=== PATIENT | female | born 1985 | race Caucasian/White ===

== ENCOUNTER 2017-02-09 12:07 | Emergency (ER) | payer MEDICAID ==
[2017-02-09 12:19] VITALS: BP 135/94; PULSE 94; O2SAT 99
[2017-02-09] MEDS ORDERED: CLEOCIN 150 MG CAPSULE PO ONE (12:39)
[2017-02-09] MEDS ORDERED: XYLOCAINE VISCOUS 2% 20 ML CUP PO ONE (12:40)
[2017-02-09] MEDS ORDERED: XYLOCAINE HCl Viscous ONE (12:42)
[2017-02-09] MEDS ORDERED: CLEOCIN 150 MG CAPSULE ONE (12:42)
--- NOTE | 2017-02-09 12:45 | ERPHSYRPT ---
- History of Present Illness Time Seen by Provider: 02/09/17 12:41 Source: patient Exam Limitations: no limitations Patient Subjective Stated Complaint: tooth pain and swelling to right lower jaw ; no fevers Triage Nursing Assessment: swelling to lower right jaw, no drainage, no fever Physician History: mild to mod ache right lower tooth for 4 days, no fever, no injury, speech fluent Allergies/Adverse Reactions: ceftriaxone [From Rocephin] Allergy (Verified 02/09/17 12:20) Vomiting ciprofloxacin [From Cipro] Allergy (Verified 02/09/17 12:20) Vomiting citalopram [From Celexa] Allergy (Verified 02/09/17 12:20) Fainting divalproex sodium [From Depakote] Allergy (Verified 02/09/17 12:20) Fainting fluoxetine [From Prozac] Allergy (Verified 02/09/17 12:20) Fainting tramadol Allergy (Verified 02/09/17 12:20) Vomiting Home Medications: No Reportable Medications [No Reported Medications] 02/09/17 [History] Hx Tetanus, Diphtheria Vaccination/Date Given: No Hx Influenza Vaccination/Date Given: No Hx Pneumococcal Vaccination/Date Given: No Immunizations Up to Date: Yes - Review of Systems Constitutional: No Fever Ears, Nose, & Throat: Mouth Pain Respiratory: No Symptoms Skin: No Symptoms Neurological: No Symptoms - Past Medical History Pertinent Past Medical History: No - Past Surgical History Past Surgical History: Yes Gastrointestinal: Appendectomy, Cholecystectomy Female Surgical History: Hysterectomy, Section Other Surgical History: barthland gland removed - Social History Smoking Status: Current every day smoker Drug Use: none - Female History Hx Last Menstrual Period: hysterectomy Hx Now: No - Nursing Vital Signs Nursing Vital Signs: Initial Vital Signs Temperature 98.1 F 02/09/17 12:13 Pulse Rate 94 H 02/09/17 12:13 Respiratory Rate 18 02/09/17 12:13 Blood Pressure 135/94 02/09/17 12:13 O2 Sat by Pulse Oximetry 99 02/09/17 12:13 Pain Scale Pain Intensity 8 - Physical Exam General Appearance: no apparent distress Ears, Nose, Throat Exam: other (tender right lower molar, no trismus, no fluc mass) Neck Exam: normal inspection Respiratory Exam: normal breath sounds Neurologic Exam: alert, oriented x 3, cooperative Skin Exam: normal color, warm, dry SpO2 Interpretation: normal SpO2: 99 Oxygen Delivery: Room Air - Course Nursing assessment & vital signs reviewed: Yes Ordered Tests: Medication Summary Discontinued Medications Generic Name Dose Route Start Last Admin Trade Name Gail PRN Reason Stop Dose Admin Clindamycin HCl 150 mg 02/09/17 12:39 Cleocin 150 Mg Capsule PO 02/09/17 12:40 STAT ONE Lidocaine HCl 20 ml 02/09/17 12:40 Xylocaine Viscous 2% 20 Ml Cup PO 02/09/17 12:41 STAT ONE - Progress Progress: improved Progress Note: 02/09/17 12:43 see a dentist, cleocin, viscus lidocaine, return if worse Discussed with Dr.: Other (dentist) Counseled pt/family regarding: diagnosis, need for follow-up - Departure Time of Disposition: 12:44 Departure Disposition: Home Clinical Impression: Tooth ache Condition: Stable Critical Care Time: No Referrals: DEVEN MORENO MD [Primary Care Provider] - Instructions: Tooth Decay
== END 2017-02-09 13:04 | disposition home or self-care (01) ==
LOC: ED 12:07
DX: K08.89 Other specified disorders of teeth and supporting structures (principal)
CPT/HCPCS: 99283; A9270-GY

== ENCOUNTER 2017-05-29 23:50 | Observation (INO) | payer MEDICAID, OTHER ==
[2017-05-30] MEDS ORDERED: BABY ASPIRIN 81 MG CHEW PO ONE (00:27)
[2017-05-30] MEDS ORDERED: Nitrostat 0.4 MG (ED) SL ONE ×2 (00:27→01:01)
[2017-05-30] MEDS ORDERED: Sodium Chloride 0.9% 1000 ML 1,000 ML IV STA (00:27)
[2017-05-30] MEDS ORDERED: BABY ASPIRIN 81 MG CHEW ONE (01:01)
[2017-05-30] MEDS ORDERED: Sodium Chloride 0.9% 1000 ML 1,000 ML ONE (01:01)
[2017-05-30 01:37] LABS: BASOPHIL % 0.3 % (0.0-0.4); Basophil (Absolute #) 0.03 (0-0.4); Eosinophil % 0.5 % (0.00-5.0); Eosinophil (Absolute #) 0.06 (0-0.5); Granulocyte Absolute (ANC) 7.69 (1.4-6.9); Granulocytes % 67.2 % (36.0-66.0); Hematocrit 38.2 % (35-47); Hemoglobin 12.8 gm/dl (12.0-16.0); Lymphocytes % 25.3 % (24.0-44.0); Mean Cell Volume 92.3 fl (78-100); Mean Corpuscular Hemoglobin 30.9 pg (26-32); Mean Corpuscular Hgb Concent. 33.5 g/dl (32-36); Mean Platelet Volume 9.9 fl (6-9.5); Monocyte (Absolute #) 0.77 (0.0-1.3); Monocytes % 6.7 % (0.0-12.0); Platelet Count 349 K/mm3 (150-450); Red Blood Count 4.14 M/mm3 (4.1-5.4); Red Cell Distribution Width 13.4 % (11.5-14.0); White Blood Count 11.5 K/mm3 (4.0-10.5)
[2017-05-30 01:58] LABS: ALBUMIN 4.5 g/dL (3.5-5.0); ALKALINE PHOSPHATASE 80 U/L (38-126); AMYLASE 54 U/L (30-110); ANION GAP 18.5 MEQ/L (5-15); BLOOD UREA NITROGEN 18 mg/dL (7-17); CHLORIDE 106 mmol/L (98-107); Calcium 9.9 mg/dL (8.4-10.2); Carbon Dioxide 22 mmol/L (22-30); Creatinine 1 0.63 mg/dL (0.52-1.04); Glucose 101 mg/dL (74-106); LIPASE 81 U/L (23-300); Potassium 3.3 mmol/L (3.5-5.1); SGOT/AST 14 U/L (14-36); SGPT/ALT 16 U/L (0-35); SODIUM 143 mmol/L (137-145); Total Protein 7.6 g/dL (6.3-8.2)
--- NOTE | 2017-05-30 01:59 | ERPHSYRPT ---
- History of Present Illness Time Seen by Provider: 05/30/17 01:55 Source: patient, family Patient Subjective Stated Complaint: starting at 4am with a feeling of heaviness all over.. had CP at that time.. states feels like she forgets to breath. tingly feeling all over. Triage Nursing Assessment: alert and oriented in no distress. staes heaviness feeling all over with CP last night. states forgets to breathe.. tingly fgeeling everywhere. denies fever. states feel like her blood sugar was low earlier. ( not diabetic) had some OJ And layed down but did not feel better./. Physician History: no prior cardiac , no CP; no n/V , no fever, some shortness of breath Timing/Duration: today Activities at Onset: none Severity of Dyspnea-Max: moderate Severity of Dyspnea-Current: moderate Possible Cause: no prior episodes Associated Symptoms: tingling hands Allergies/Adverse Reactions: ceftriaxone [From Rocephin] Allergy (Verified 02/09/17 12:20) Vomiting ciprofloxacin [From Cipro] Allergy (Verified 02/09/17 12:20) Vomiting citalopram [From Celexa] Allergy (Verified 02/09/17 12:20) Fainting divalproex sodium [From Depakote] Allergy (Verified 02/09/17 12:20) Fainting fluoxetine [From Prozac] Allergy (Verified 02/09/17 12:20) Fainting tramadol Allergy (Verified 02/09/17 12:20) Vomiting Home Medications: No Reportable Medications [No Reported Medications] 02/09/17 [History] Hx Tetanus, Diphtheria Vaccination/Date Given: No Hx Influenza Vaccination/Date Given: No Hx Pneumococcal Vaccination/Date Given: No Immunizations Up to Date: Yes - Review of Systems Constitutional: No Fever, No Chills Eyes: No Symptoms Ears, Nose, & Throat: No Symptoms Respiratory: Dyspnea, No Cough Cardiac: No Chest Pain, No Edema, No Syncope Abdominal/Gastrointestinal: No Abdominal Pain, No Nausea, No Vomiting, No Diarrhea Genitourinary Symptoms: No Dysuria Musculoskeletal: No Back Pain, No Neck Pain Skin: No Rash Neurological: No Dizziness, No Focal Weakness, No Sensory Changes Psychological: No Symptoms Endocrine: No Symptoms All Other Systems: Reviewed and Negative - Past Medical History Pertinent Past Medical History: Yes Female Reproductive Disorders: Other - Past Surgical History Past Surgical History: Yes Gastrointestinal: Appendectomy, Cholecystectomy Female Surgical History: Hysterectomy, Section Other Surgical History: barthland gland removed - Social History Smoking Status: Current every day smoker Exposure to second hand smoke: No Drug Use: none Patient Lives Alone: No - Female History Hx Last Menstrual Period: hysterectomy Hx Now: No - Nursing Vital Signs Nursing Vital Signs: Initial Vital Signs Temperature 98.2 F 05/30/17 00:14 Pulse Rate 96 H 05/30/17 00:14 Respiratory Rate 18 05/30/17 00:14 Blood Pressure 128/85 05/30/17 00:14 O2 Sat by Pulse Oximetry 100 05/30/17 00:14 Pain Scale Pain Intensity 4 - Physical Exam General Appearance: no apparent distress, alert Eye Exam: PERRL/EOMI Neck Exam: normal inspection, supple Respiratory Exam: normal breath sounds, lungs clear, airway intact Cardiovascular/Chest Exam: normal heart sounds, regular rate/rhythm Abdominal/Gastrointestinal Exam: soft, No tenderness, No distention, No mass Extremity Exam: non-tender, normal range of motion, normal inspection, no calf tenderness, no pedal edema Peripheral Pulses Exam: carotid (R): 2+, carotid (L): 2+, femoral (R): 2+, femoral (L): 2+, dorsalis-pedis (R): 2+, dorsalis-pedis (L): 2+ Neurologic Exam: alert, oriented x 3, cooperative, assemblyman or woman II-XII nml as tested, sensation nml, No motor deficits Skin Exam: normal color, warm, No dry SpO2 Interpretation: normal SpO2: 100 Oxygen Delivery: Room Air - Course Nursing assessment & vital signs reviewed: Yes EKG Interpreted by Me: Sinus Rhythm, NORMAL AXIS, Non-specific ST Changes - Radiology Exams Chest X-ray Interpretation: Reviewed by me, No Pneumonia (scoliosis), No Infiltrates - CT Exams Chest CT Interpretation: Tele-radiologist Report, No PE Ordered Tests: Active Orders 24 hr Category Date Time Status Skidder Operator STAT Care 05/30/17 00:29 Active Clean Catch Urine Specimen STAT Care 05/30/17 00:27 Active EKG-ER Only STAT Care 05/30/17 00:27 Active Pulse Oximetry (ED) STAT Care 05/30/17 00:27 Active CHEST 2 VIEWS (PA AND LAT) Stat Exams 05/30/17 00:28 Taken CHEST WITH CONTRAST [CT] Stat Exams 05/30/17 02:04 Taken AMYLASE Stat Lab 05/30/17 01:20 Completed CBC W DIFF Stat Lab 05/30/17 01:20 Completed CMP Stat Lab 05/30/17 01:20 Completed D-DIMER QUANTITATION Stat Lab 05/30/17 01:20 Completed HCG QUALITATIVE,SERUM Stat Lab 05/30/17 01:20 Completed LIPASE Stat Lab 05/30/17 01:20 Completed Lactic Acid Stat Lab 05/30/17 01:11 Completed TROPONIN Q3H Lab 05/30/17 01:20 Completed TROPONIN Q3H Lab 05/30/17 04:00 Completed TROPONIN Q3H Lab 05/30/17 06:30 Ordered TROPONIN Q3H Lab 05/30/17 09:30 Ordered TROPONIN Q3H Lab 05/30/17 12:30 Ordered UA W/RFX UR CULTURE Stat Lab 05/30/17 00:28 Ordered Medication Summary Discontinued Medications Generic Name Dose Route Start Last Admin Trade Name Freq PRN Reason Stop Dose Admin Aspirin 324 mg 05/30/17 00:27 05/30/17 01:05 Baby Aspirin 81 Mg Chew PO 05/30/17 00:28 324 mg STAT ONE Administration Aspirin Confirm 05/30/17 01:01 Baby Aspirin 81 Mg Chew Administered 05/30/17 01:02 Dose 324 mg .ROUTE .STK-MED ONE Sodium Chloride 1,000 mls @ 999 mls/hr 05/30/17 00:27 05/30/17 01:05 Sodium Chloride 0.9% 1000 Ml IV 05/30/17 01:27 999 mls/hr .Q1H1M STA Administration Sodium Chloride Confirm 05/30/17 01:01 Sodium Chloride 0.9% 1000 Ml Administered 05/30/17 01:02 Dose 1,000 mls @ ud .ROUTE .STK-MED ONE Nitroglycerin 0.4 mg 05/30/17 00:27 05/30/17 01:05 Nitrostat 0.4 Mg (Ed) SL 05/30/17 00:28 0.4 mg STAT ONE Administration Nitroglycerin Confirm 05/30/17 01:01 Nitrostat 0.4 Mg (Ed) Administered 05/30/17 01:02 Dose 0.4 mg SL .STK-MED ONE Lab/Rad Data: Laboratory Result Diagrams 05/30/17 01:20 05/30/17 01:20 Laboratory Results 05/30/17 05/30/17 05/30/17 Range/Units 04:00 02:45 01:20 WBC (4.0-10.5) K/mm3 RBC (4.1-5.4) M/mm3 Hgb (12.0-16.0) gm/dl Hct (35-47) % MCV (78-100) fl MCH (26-32) pg MCHC (32-36) g/dl RDW (11.5-14.0) % Plt Count (150-450) K/mm3 MPV (6-9.5) fl Gran % (36.0-66.0) % Lymphocytes % (24.0-44.0) % Monocytes % (0.0-12.0) % Eosinophils % (0.00-5.0) % Basophils % (0.0-0.4) % Basophils # (0-0.4) D-Dimer (215-500) ng/mL Sodium (137-145) mmol/L Potassium (3.5-5.1) mmol/L Chloride (98-107) mmol/L Carbon Dioxide (22-30) mmol/L Anion Gap (5-15) MEQ/L BUN (7-17) mg/dL Creatinine (0.52-1.04) mg/dL Estimated GFR ML/MIN Glucose (74-106) mg/dL Lactic Acid (0.4-2.0) Calcium (8.4-10.2) mg/dL Total Bilirubin (0.2-1.3) mg/dL AST (14-36) U/L ALT (0-35) U/L Alkaline Phosphatase (38-126) U/L Troponin I < 0.012 (0.000-0.034) ng/mL Serum Total Protein (6.3-8.2) g/dL Albumin (3.5-5.0) g/dL Amylase (30-110) U/L Lipase (23-300) U/L Serum , Qual NEGATIVE (Negative) Influenza Type A Ag NEGATIVE (NEGATIVE) Influenza Type B Ag NEGATIVE (NEGATIVE) RSV (PCR) NEGATIVE (Negative) 05/30/17 05/30/17 05/30/17 Range/Units 01:20 01:20 01:20 WBC (4.0-10.5) K/mm3 RBC (4.1-5.4) M/mm3 Hgb (12.0-16.0) gm/dl Hct (35-47) % MCV (78-100) fl MCH (26-32) pg MCHC (32-36) g/dl RDW (11.5-14.0) % Plt Count (150-450) K/mm3 MPV (6-9.5) fl Gran % (36.0-66.0) % Lymphocytes % (24.0-44.0) % Monocytes % (0.0-12.0) % Eosinophils % (0.00-5.0) % Basophils % (0.0-0.4) % Basophils # (0-0.4) D-Dimer 245.15 (215-500) ng/mL Sodium 143 (137-145) mmol/L Potassium 3.3 L (3.5-5.1) mmol/L Chloride 106 (98-107) mmol/L Carbon Dioxide 22 (22-30) mmol/L Anion Gap 18.5 H (5-15) MEQ/L BUN 18 H (7-17) mg/dL Creatinine 0.63 (0.52-1.04) mg/dL Estimated GFR > 60 ML/MIN Glucose 101 (74-106) mg/dL Lactic Acid (0.4-2.0) Calcium 9.9 (8.4-10.2) mg/dL Total Bilirubin 0.40 (0.2-1.3) mg/dL AST 14 (14-36) U/L ALT 16 (0-35) U/L Alkaline Phosphatase 80 (38-126) U/L Troponin I < 0.012 (0.000-0.034) ng/mL Serum Total Protein 7.6 (6.3-8.2) g/dL Albumin 4.5 (3.5-5.0) g/dL Amylase 54 (30-110) U/L Lipase 81 (23-300) U/L Serum , Qual (Negative) Influenza Type A Ag (NEGATIVE) Influenza Type B Ag (NEGATIVE) RSV (PCR) (Negative) 05/30/17 05/30/17 Range/Units 01:20 01:11 WBC 11.5 H (4.0-10.5) K/mm3 RBC 4.14 (4.1-5.4) M/mm3 Hgb 12.8 (12.0-16.0) gm/dl Hct 38.2 (35-47) % MCV 92.3 (78-100) fl MCH 30.9 (26-32) pg MCHC 33.5 (32-36) g/dl RDW 13.4 (11.5-14.0) % Plt Count 349 (150-450) K/mm3 MPV 9.9 H (6-9.5) fl Gran % 67.2 H (36.0-66.0) % Lymphocytes % 25.3 (24.0-44.0) % Monocytes % 6.7 (0.0-12.0) % Eosinophils % 0.5 (0.00-5.0) % Basophils % 0.3 (0.0-0.4) % Basophils # 0.03 (0-0.4) D-Dimer (215-500) ng/mL Sodium (137-145) mmol/L Potassium (3.5-5.1) mmol/L Chloride (98-107) mmol/L Carbon Dioxide (22-30) mmol/L Anion Gap (5-15) MEQ/L BUN (7-17) mg/dL Creatinine (0.52-1.04) mg/dL Estimated GFR ML/MIN Glucose (74-106) mg/dL Lactic Acid 0.7 (0.4-2.0) Calcium (8.4-10.2) mg/dL Total Bilirubin (0.2-1.3) mg/dL AST (14-36) U/L ALT (0-35) U/L Alkaline Phosphatase (38-126) U/L Troponin I (0.000-0.034) ng/mL Serum Total Protein (6.3-8.2) g/dL Albumin (3.5-5.0) g/dL Amylase (30-110) U/L Lipase (23-300) U/L Serum , Qual (Negative) Influenza Type A Ag (NEGATIVE) Influenza Type B Ag (NEGATIVE) RSV (PCR) (Negative) - Progress Progress: improved, re-examined Air Movement: good Progress Note: 05/30/17 04:[address] dockery, but he was not the Dr for those having no Dr and was misunderstood by requesting staff; Dr Lewis was then paged but not yet responding so will have to repage , requiring more time to dispo; 05/30/17 05:21 Dr Lewis called back and all agree best to place pt in obs and follow enzymes ; Blood Culture(s) Obtained: No Antibiotics given: No Discussed with Dr.: Coleen (dr dockery turned out to not be correct Dr- will call brien), Leonela Henson Will see patient in: hospital (observation) Counseled pt/family regarding: lab results, diagnosis, need for follow-up, rad results - Departure Time of Disposition: 05:23 Departure Disposition: Observation Clinical Impression: chest pain/short of breath, Hypokalemia Condition: Good Critical Care Time: No Referrals: DOCTOR,NO FAMILY [Primary Care Provider] -
[2017-05-30 04:08] LABS: INFLUENZA A NEGATIVE (NEGATIVE); INFLUENZA B NEGATIVE (NEGATIVE); RESPIRATORY SYNCTIAL VIRUS NEGATIVE (Negative)
[2017-05-30] MEDS ORDERED: TYLENOL 325 MG PO PRN (06:05)
[2017-05-30] MEDS ORDERED: MORPHINE SULFATE 4 MG INJ IV PRN (06:05)
[2017-05-30] MEDS ORDERED: POTASSIUM CHLORIDE 20 mEq IN WATER 100ML 20 MEQ/100 ML BAG IV ONE (06:05)
[2017-05-30] MEDS ORDERED: Zofran 4 MG/2 ML VIAL IV PRN (06:05)
[2017-05-30] MEDS ORDERED: Sodium Chloride 0.9% 1000 ML 1,000 ML IV SCH (06:05)
[2017-05-30 06:40] VITALS: O2SAT 98
--- NOTE | 2017-05-30 10:02 | XRAY ---
Indication: Short of breath. Elevated d-dimer. Multiple contiguous axial images obtained through the chest using 80 cc Isovue 370 contrast and PE protocol. Comparison: None Adequate opacification of the pulmonary arteries to include the lobar and segmental branches. No filling defect or pulmonary embolus. Heart is not enlarged. Aorta is normal in course and caliber. No pathologic mediastinal/hilar lymphadenopathy. Examination of the lung parenchyma demonstrates mild bilateral dependent atelectasis. No suspicious pulmonary mass, infiltrate, or effusion. Bony thorax intact with mild dextroscoliosis centered at T8 level. Limited upper abdomen demonstrates mild fatty liver and previous cholecystectomy. Impression: 1. Negative pulmonary embolus. No acute cardiopulmonary abnormalities. 2. Fatty liver. Comment: Preliminary interpretation was made by [facility]. No discrepancy. CT DI 13.58
--- NOTE | 2017-05-30 10:04 | XRAY ---
Indication: Short of breath, bilateral arm tingling, and left arm heaviness. Comparison: None PA/lateral chest demonstrates normal heart and lungs. Bony thorax intact with double curvature scoliosis.
[2017-05-30 12:17] VITALS: BP 110/67; PULSE 74
--- NOTE | 2017-05-30 12:38 | PCM.SSS ---
History of Present Illness - Chief Complaint Chief Complaint: cp/sob and chest pain for 1 day History of Present Illness: is a 32 year old female.starting at 4am with a feeling of heaviness all over.. had CP at that time.. states feels like she forgets to breath. tingly feeling all over. - Review of Systems Constitutional: No Fever, No Chills Eyes: No Symptoms Ears, Nose, & Throat: No Symptoms Respiratory: No Cough, No Short Of Breath Cardiac: Chest Pain, No Edema, No Syncope Abdominal/Gastrointestinal: No Abdominal Pain, No Nausea, No Vomiting, No Diarrhea Genitourinary Symptoms: No Dysuria Musculoskeletal: No Back Pain, No Neck Pain Skin: No Rash Neurological: No Dizziness, No Focal Weakness, No Sensory Changes Psychological: No Symptoms Endocrine: No Symptoms Hematologic/Lymphatic: No Symptoms Immunological/Allergic: No Symptoms Medications & Allergies Home Medications: Home Medication List Cyclobenzaprine HCl [Flexeril] 2 tab PO TID PRN 05/30/17 [History Confirmed ] Hydrocodone Bit/Acetaminophen [[place] 7.5-325 Tablet] 1 each PO QIDPRN PRN [History Confirmed 05/30/17] Ibuprofen [Ibuprofen] 1 tab PO Q8H PRN 05/30/17 [History Confirmed 05/30/17] Allergies/Adverse Reactions: Allergies Allergy/AdvReac Type Severity Reaction Status Date / Time ceftriaxone [From Rocephin] Allergy Vomiting Verified 05/30/17 05:59 ciprofloxacin [From Cipro] Allergy Vomiting Verified 05/30/17 05:59 citalopram [From Celexa] Allergy Fainting Verified 05/30/17 05:59 divalproex sodium Allergy Fainting Verified 05/30/17 05:59 [From Depakote] fluoxetine [From Prozac] Allergy Fainting Verified 05/30/17 05:59 tramadol Allergy Vomiting Verified 05/30/17 05:59 - Past Medical History Past Medical History: Yes Neurological History: No Pertinent History ENT History: No Pertinent History Cardiac History: No Pertinent History Respiratory History: No Pertinent History Endocrine Medical History: No Pertinent History Musculoskelatal History: Other GI Medical History: No Pertinent History History: No Pertinent History Pyscho-Social History: Anxiety, Depression Reproductive Disorders: Other Comment: scoliosis and degen disc disease. -pt reports to have no trouble with depression and anxiety at this time - Female History Hx Last Menstrual Period: hysterectomy Are you now?: No - Past Surgical History Past Surgical History: Yes Neuro Surgical History: No Pertinent History Cardiac History: No Pertinent History Respiratory Surgery: No Pertinent History GI Surgical History: Appendectomy, Cholecystectomy Genitourinary Surgical Hx: No Pertinent History Musculskeletal Surgical Hx: No Pertinent History Female Surgical History: Hysterectomy, Section, Tubal Ligation, Other Other Surgical History: barthland gland removed. uterine ablasion - Social History Smoking Status: Current every day smoker Exposure to second hand smoke: No Alcohol: None Drug Use: none - Physical Exam Vital Signs: Vital Signs - 24 hr Temp Pulse Pulse Resp BP Pulse Ox 05/30/17 12:00 98.5 F 74 20 110/67 98 05/30/17 06:17 97.8 F 78 10 L 113/67 98 05/30/17 05:54 74 16 128/74 97 05/30/17 05:24 100 05/30/17 03:20 86 16 129/91 98 05/30/17 00:27 100 05/30/17 00:14 98.2 F 96 H 96 H 18 128/85 100 General Appearance: no apparent distress, alert Neurologic Exam: alert, oriented x 3, cooperative, normal mood/affect, nml cerebellar function, nml station & gait, sensation nml, No motor deficits Eye Exam: PERRL/EOMI, eyes nml inspection Ears, Nose, Throat Exam: normal ENT inspection, TMs normal, pharynx normal, moist mucous membranes Neck Exam: normal inspection, non-tender, supple, full range of motion Respiratory Exam: normal breath sounds, lungs clear, No respiratory distress Cardiovascular Exam: regular rate/rhythm, normal heart sounds, normal peripheral pulses Gastrointestinal/Abdomen Exam: soft, normal bowel sounds, No tenderness, No mass Back Exam: normal inspection, normal range of motion, No CVA tenderness, No vertebral tenderness Extremity Exam: normal inspection, normal range of motion, pelvis stable Skin Exam: normal color, warm, dry, No rash Lymphatic Exam: No adenopathy Results - Labs Lab/Micro Results: Accuchecks Accucheck Value: 127 Accucheck Value: 93 Lab Results-Last 24 Hours 05/30/17 05/30/17 05/30/17 Range/Units 07:00 09:30 Unknown Hemoglobin A1c 5.43 (4.5-6.0) % Troponin I < 0.012 < 0.012 (0.000-0.034) ng/mL Accuchecks Accucheck Value: 127 Accucheck Value: 93 - Other Procedures and Tests Respiratory Therapy 05/30/17 06:40 Smoking Cessation Education ONCE Assessment/Plan (1) Chest pain Current Visit: Yes Status: Resolved Qualifiers: Chest pain type: unspecified Qualified Code(s): R07.9 - Chest pain, unspecified Code(s): R07.9 - CHEST PAIN, UNSPECIFIED (2) Hypokalemia Current Visit: Yes Status: Resolved Code(s): E87.6 - HYPOKALEMIA Hospital Summary - Hospital Course Hospital Course: Chief Complaint Diagnosis cp/sob Allergies Allergy/AdvReac Type Severity Reaction Status Date / Time ceftriaxone [From Rocephin] Allergy Vomiting Verified 05/30/17 05:59 ciprofloxacin [From Cipro] Allergy Vomiting Verified 05/30/17 05:59 citalopram [From Celexa] Allergy Fainting Verified 05/30/17 05:59 divalproex sodium Allergy Fainting Verified 05/30/17 05:59 [From Depakote] fluoxetine [From Prozac] Allergy Fainting Verified 05/30/17 05:59 tramadol Allergy Vomiting Verified 05/30/17 05:59 Vital Signs (Last 24 hours) Temp Pulse Pulse Resp BP Pulse Ox 05/30/17 12:00 98.5 F 74 20 110/67 98 05/30/17 06:17 97.8 F 78 10 L 113/67 98 05/30/17 05:54 74 16 128/74 97 05/30/17 05:24 100 05/30/17 03:20 86 16 129/91 98 05/30/17 00:27 100 05/30/17 00:14 98.2 F 96 H 96 H 18 128/85 100 Home Medications Medication Instructions Recorded Confirmed Last Taken Type Cyclobenzaprine HCl [Flexeril] 2 tab PO TID PRN 05/30/17 05/30/17 05/26/17 History Hydrocodone Bit/Acetaminophen 1 each PO QIDPRN PRN 05/30/17 05/30/17 05/28/17 History [[place] 7.5-325 Tablet] Ibuprofen [Ibuprofen] 1 tab PO Q8H PRN 05/30/17 05/30/17 05/30/17 History Current Medications Generic Name Dose Route Start Last Admin Trade Name Gail PRN Reason Stop Dose Admin Acetaminophen 650 mg 05/30/17 06:05 05/30/17 06:56 Tylenol 325 Mg PO 06/29/17 06:04 650 mg Q4H PRN PRN Administration PAIN AND/OR FEVER Sodium Chloride 1,000 mls @ 100 mls/hr 05/30/17 06:05 05/30/17 07:11 Sodium Chloride 0.9% 1000 Ml IV 06/29/17 06:04 100 mls/hr .Q10H MARIA G Administration Morphine Sulfate 4 mg 05/30/17 06:05 Morphine Sulfate 4 Mg Inj IV 06/04/17 06:04 Q4H PRN PRN PAIN Ondansetron HCl 4 mg 05/30/17 06:05 Zofran 4 Mg/2 Ml Vial IV 06/29/17 06:04 Q6H PRN PRN NAUSEA/VOMITING Discontinued Medications Generic Name Dose Route Start Last Admin Trade Name Gail PRN Reason Stop Dose Admin Aspirin 324 mg 05/30/17 00:27 05/30/17 01:05 Baby Aspirin 81 Mg Chew PO 05/30/17 00:28 324 mg STAT ONE Administration Aspirin Confirm 05/30/17 01:01 Baby Aspirin 81 Mg Chew Administered 05/30/17 01:02 Dose 324 mg .ROUTE .STK-MED ONE Sodium Chloride 1,000 mls @ 999 mls/hr 05/30/17 00:27 05/30/17 01:05 Sodium Chloride 0.9% 1000 Ml IV 05/30/17 01:27 999 mls/hr .Q1H1M STA Administration Sodium Chloride Confirm 05/30/17 01:01 Sodium Chloride 0.9% 1000 Ml Administered 05/30/17 01:02 Dose 1,000 mls @ ud .ROUTE .STK-MED ONE Potassium Chloride 20 meq in 100 mls @ 50 mls/hr 05/30/17 06:05 05/30/17 06: 57 Potassium Chloride 20 Meq In Water 100ml IV 05/30/17 08:04 50 mls/hr STAT ONE Administration Nitroglycerin 0.4 mg 05/30/17 00:27 03/19/18 01:05 Nitrostat 0.4 Mg (Ed) SL 05/30/17 00:28 0.4 mg STAT ONE Administration Nitroglycerin Confirm 05/30/17 01:01 Nitrostat 0.4 Mg (Ed) Administered 05/30/17 01:02 Dose 0.4 mg SL .STK-MED ONE Intake & Output (Last 24 hours) 05/28/17 05/29/17 05/30/17 05/31/17 11:59 11:59 11:59 11:59 Intake Total 115 Balance 115 Weight 74 kg Laboratory Results (Last 24 hours) 05/30/17 05/30/17 05/30/17 Unknown 09:30 07:00 WBC RBC Hgb Hct MCV MCH MCHC RDW Plt Count MPV Gran % Lymphocytes % Monocytes % Eosinophils % Basophils % Basophils # D-Dimer Sodium Potassium Chloride Carbon Dioxide Anion Gap BUN Creatinine Estimated GFR Glucose Hemoglobin A1c 5.43 Lactic Acid Calcium Total Bilirubin AST ALT Alkaline Phosphatase Troponin I < 0.012 < 0.012 Serum Total Protein Albumin Amylase Lipase Serum , Qual Influenza Type A Ag Influenza Type B Ag RSV (PCR) 05/30/17 05/30/17 05/30/17 04:00 02:45 01:20 WBC RBC Hgb Hct MCV MCH MCHC RDW Plt Count MPV Gran % Lymphocytes % Monocytes % Eosinophils % Basophils % Basophils # D-Dimer Sodium Potassium Chloride Carbon Dioxide Anion Gap BUN Creatinine Estimated GFR Glucose Hemoglobin A1c Lactic Acid Calcium Total Bilirubin AST ALT Alkaline Phosphatase Troponin I < 0.012 Serum Total Protein Albumin Amylase Lipase Serum , Qual NEGATIVE Influenza Type A Ag NEGATIVE Influenza Type B Ag NEGATIVE RSV (PCR) NEGATIVE 05/30/17 05/30/17 05/30/17 01:20 01:20 01:20 WBC RBC Hgb Hct MCV MCH MCHC RDW Plt Count MPV Gran % Lymphocytes % Monocytes % Eosinophils % Basophils % Basophils # D-Dimer 245.15 Sodium 143 Potassium 3.3 L Chloride 106 Carbon Dioxide 22 Anion Gap 18.5 H BUN 18 H Creatinine 0.63 Estimated GFR > 60 Glucose 101 Hemoglobin A1c Lactic Acid Calcium 9.9 Total Bilirubin 0.40 AST 14 ALT 16 Alkaline Phosphatase 80 Troponin I < 0.012 Serum Total Protein 7.6 Albumin 4.5 Amylase 54 Lipase 81 Serum , Qual Influenza Type A Ag Influenza Type B Ag RSV (PCR) 05/30/17 05/30/17 01:20 01:11 WBC 11.5 H RBC 4.14 Hgb 12.8 Hct 38.2 MCV 92.3 MCH 30.9 MCHC 33.5 RDW 13.4 Plt Count 349 MPV 9.9 H Gran % 67.2 H Lymphocytes % 25.3 Monocytes % 6.7 Eosinophils % 0.5 Basophils % 0.3 Basophils # 0.03 D-Dimer Sodium Potassium Chloride Carbon Dioxide Anion Gap BUN Creatinine Estimated GFR Glucose Hemoglobin A1c Lactic Acid 0.7 Calcium Total Bilirubin AST ALT Alkaline Phosphatase Troponin I Serum Total Protein Albumin Amylase Lipase Serum , Qual Influenza Type A Ag Influenza Type B Ag RSV (PCR) Orders (Last 24 hours) Category Date Time Status Bedrest with BRP/BSC ROUTINE Activity 05/30/17 06:05 Active Up With Assistance ROUTINE Activity 05/30/17 06:05 Active Accucheck ACHS Care 05/30/17 06:05 Active Ambulate Patient ROUTINE Care 05/30/17 10:38 Active Solar Crew Member STAT Care 05/30/17 00:29 Completed Clean Catch Urine Specimen STAT Care 05/30/17 00:27 Inactive Code Status Order ROUTINE Care 05/30/17 06:05 Active EKG-ER Only STAT Care 05/30/17 00:27 Completed Fall Protocol Q1H Care 05/30/17 06:05 Active IV Care Q6H Care 05/30/17 06:05 Active Neuro Checks Q4H Care 05/30/17 06:[address] in Observation ROUTINE Care 05/30/17 06:05 Active Pulse Oximetry (ED) STAT Care 05/30/17 00:27 Completed Nikunj Kevin ROUTINE Care 05/30/17 06:05 Active Telemetry Q12H Care 05/30/17 06:05 Active Vital Signs Q4H Care 05/30/17 06:05 Active Weight,Daily 0600 Care 05/30/17 06:05 Active Cardiac Diet Diet 05/30/17 Breakfast Active CHEST 2 VIEWS (PA AND LAT) Stat Exams 05/30/17 00:28 Completed CHEST WITH CONTRAST [CT] Stat Exams 05/30/17 02:04 Completed AMYLASE Stat Lab 05/30/17 01:20 Completed CBC W DIFF AM.LAB Lab 05/31/17 04:00 Ordered CBC W DIFF Stat Lab 05/30/17 01:20 Completed CMP AM.LAB Lab 05/31/17 04:00 Ordered CMP Stat Lab 05/30/17 01:20 Completed D-DIMER QUANTITATION Stat Lab 05/30/17 01:20 Completed Flu & RSV [Respiratory Panel] Stat Lab 05/30/17 02:45 Completed HCG QUALITATIVE,SERUM Stat Lab 05/30/17 01:20 Completed HEMOGLOBIN A1C Urgent Lab 05/30/17 Completed LIPASE Stat Lab 05/30/17 01:20 Completed Lactic Acid Stat Lab 05/30/17 01:11 Completed Potassium Urgent Lab 05/30/17 13:09 Ordered TROPONIN Q3H Lab 05/30/17 01:20 Completed TROPONIN Q3H Lab 05/30/17 04:00 Completed TROPONIN Q3H Lab 05/30/17 07:00 Completed TROPONIN Q3H Lab 05/30/17 09:30 Completed TROPONIN Q3H Lab 05/30/17 12:30 Ordered UA W/RFX UR CULTURE Stat Lab 05/30/17 00:28 Ordered Acetaminophen 325 mg [Tylenol 325 mg] Med 05/30/17 06:05 Active 650 mg PO Q4H PRN PRN Aspirin 81 gm Chew [Baby Aspirin 81 mg Chew] Med 05/30/17 01:01 Discontinued 324 mg .ROUTE .STK-MED ONE Aspirin 81 gm Chew [Baby Aspirin 81 mg Chew] Med 05/30/17 00:27 Discontinued 324 mg PO STAT ONE Morphine Sulfate 4 mg Inj Med 05/30/17 06:05 Active 4 mg IV Q4H PRN PRN NaCl 0.9% 1000 ml [Sodium Chloride 0.9% 1000 ML] 1,000 Med 05/30/17 01:01 Discontinued ml .ROUTE UD NaCl 0.9% 1000 ml [Sodium Chloride 0.9% 1000 ML] 1,000 Med 05/30/17 06:05 Active ml IV 100 mls/hr NaCl 0.9% 1000 ml [Sodium Chloride 0.9% 1000 ML] 1,000 Med 05/30/17 00:27 Discontinued ml IV 999 mls/hr Nitroglycerin 0.4 mg (Ed) [Nitrostat 0.4 MG (ED)] Med 05/30/17 01:01 Discontinued 0.4 mg SL .STK-MED ONE Nitroglycerin 0.4 mg (Ed) [Nitrostat 0.4 MG (ED)] Med 05/30/17 00:27 Discontinued 0.4 mg SL STAT ONE Ondansetron HCl 4 mg/2 ml [Zofran 4 MG/2 ML VIAL] Med 05/30/17 06:05 Active 4 mg IV Q6H PRN PRN Potassium Chloride 20Meq/100Ml [POTASSIUM CHLORIDE 20 Med 05/30/17 06:05 Discontinued mEq IN WATER 100ML] 20 meq in 100 ml IV STAT Pulse Oximetry CONTINUOUS RT 05/30/17 06:05 Completed Smoking Cessation Education ONCE RT 05/30/17 06:40 Active Transfer Order Routine Transfer 05/30/17 Completed Patient Care Notes (Last 24 hours) 05/30/17 11:10 Nursing Note by Dyan Hernandez patient walked approx 150 ft with standby assistance only Initialized on 05/30/17 11:10 - END OF NOTE 05/30/17 09:15 (created 05/30/17 10:26) Case Management Note by Zhane Martinez DISCHARGE PLAN REVIEWED WITH PT, NORMALLY ACTIVE AND INDEPENDENT. DECLINED NEEDS FOR DISCHARGE. REPORTS THAT SHE CURRENTLY DOES NOT HAVE A DOCTOR. REPORTS THAT SHE WAS GOING TO [facility] IN [place] AND PAYING OUT OF POCKET. REPORTS THAT SHE RECENTLY GOT HER HIP INSURANCE BACK, AND THAT THEY DO NOT ACCEPT HIP INSURANCE. REPORTS THAT SHE IS GOING TO NEED TO FIND A NEW DOCTOR THAT ACCEPTS HER INSURANCE. DECLINED NEEDS FOR DISCHARGE. PLAN TO RETURN HOME TO PRE EPISODIC LEVEL OF [place]. Initialized on 05/30/17 10:26 - END OF NOTE 05/30/17 07:46 Nursing Note by Mirna Chadwick supplies used-tegaderm to re dress iv site d/t it starting to come out slightly Initialized on 05/30/17 07:46 - END OF NOTE - Vitals & Intake/Output Vital Signs: Vital Signs Temperature 98.5 F 05/30/17 12:00 Pulse Rate 74 05/30/17 12:00 Respiratory Rate 20 05/30/17 12:00 Blood Pressure 110/67 05/30/17 12:00 O2 Sat by Pulse Oximetry 98 05/30/17 12:00 Intake & Output: Intake & Output 05/28/17 05/29/17 05/30/1718 11:59 11:59 11:59 11:59 Intake Total 115 Balance 115 Weight 74 kg - Lab Result Diagrams: 05/30/17 01:20 05/30/17 01:20 Lab Results-Last 24 Hrs: Accuchecks Accucheck Value: 127 Accucheck Value: 93 Lab Results-Last 24 Hours 05/30/17 05/30/17 05/30/17 Range/Units 07:00 09:30 Unknown Hemoglobin A1c 5.43 (4.5-6.0) % Troponin I < 0.012 < 0.012 (0.000-0.034) ng/mL Micro Results-Entire Visit: Accuchecks Accucheck Value: 127 Accucheck Value: 93 - Procedures and Test Procedures and Tests throughout Hospitalization: Therapy Orders & Screens 05/30/17 06:40 Smoking Cessation Education ONCE Comment: Diagnosis: cp/sob Smoking Status: Current every day smoker Approximately how many cigarettes per day: 1/2 ppd Do you dip or chew tobacco: No - Discharge Discharge Date: 05/30/17 Disposition: Home, Self-Care Condition: Good Prescriptions: No Action Ibuprofen [Ibuprofen] 1 tab PO Q8H PRN PRN Reason: Pain Hydrocodone Bit/Acetaminophen [[place] 7.5-325 Tablet] 1 each PO QIDPRN PRN PRN Reason: Pain Cyclobenzaprine HCl [Flexeril] 2 tab PO TID PRN PRN Reason: Pain Follow up with: DOCTOR,NO FAMILY [Primary Care Provider] - 1 Week
== END 2017-05-30 14:00 | disposition home or self-care (01) ==
LOC: ED 23:50 → MED SURG 05-30 05:41
PROVIDERS: ADMIT General Practice; ATTEND General Practice
DX: R07.9 Chest pain, unspecified (principal); R06.02 Shortness of breath; E87.6 Hypokalemia
CPT/HCPCS: 36000; 36415; 71046; 71260; 80053; 82150; 82962; 83036; 83605; 83690; 84132; 84484; 84703; 85025; 85379; 87631; 93005; 93041; 93268; 99285; G0378; J3480; A9270-GY

== ENCOUNTER 2018-01-26 13:56 | Emergency (ER) | payer OTHER ==
[2018-01-26] MEDS ORDERED: Sodium Chloride 0.9% 1000 ML 1,000 ML IV STA (14:28)
--- NOTE | 2018-01-26 14:34 | ERPHSYRPT ---
- History of Present Illness Time Seen by Provider: 01/26/18 14:32 Source: patient Patient Subjective Stated Complaint: Pt states "I went to [facility] yesterday and they gave me a prescription for 500 mg keflex 4 times a day and today my face is swollen more and it hurts. " Triage Nursing Assessment: Pt alert and oriented X 3, skin pwd. Pt ambulates with an upright steady gait, able to speakin clear full setences. PT face is swollen on the right side, right upper teeth dental carries noted. Physician History: mild to mod sts right hemiface today, currently taking keflex for upper left tooth infection, speech fluent, no fever, no injury Allergies/Adverse Reactions: Latex, Natural Rubber Allergy (Severe, Verified 01/26/18 14:08) ceftriaxone [From Rocephin] Allergy (Verified 05/30/17 05:59) Vomiting ciprofloxacin [From Cipro] Allergy (Verified 05/30/17 05:59) Vomiting citalopram [From Celexa] Allergy (Verified 05/30/17 05:59) Fainting divalproex sodium [From Depakote] Allergy (Verified 05/30/17 05:59) Fainting fluoxetine [From Prozac] Allergy (Verified 05/30/17 05:59) Fainting tramadol Allergy (Verified 05/30/17 05:59) Vomiting Home Medications: Cephalexin Mh 500 mg [Keflex 500 mg] 500 mg PO QID 01/26/18 [History] Hx Tetanus, Diphtheria Vaccination/Date Given: Yes Hx Influenza Vaccination/Date Given: No Hx Pneumococcal Vaccination/Date Given: No Immunizations Up to Date: Yes - Review of Systems Constitutional: No Fever Eyes: No Eye Pain Ears, Nose, & Throat: No Nose Congestion, No Epistaxis, No Throat Pain, No Stridor Respiratory: No Dyspnea Cardiac: No Chest Pain Abdominal/Gastrointestinal: No Abdominal Pain Musculoskeletal: No Neck Pain - Past Medical History Pertinent Past Medical History: Yes Neurological History: No Pertinent History ENT History: No Pertinent History Cardiac History: No Pertinent History Respiratory History: No Pertinent History Endocrine Medical History: No Pertinent History Musculoskeletal History: Other GI Medical History: No Pertinent History History: No Pertinent History Psycho-Social History: Anxiety, Depression Female Reproductive Disorders: Other Other Medical History: scoliosis and degen disc disease. -pt reports to have no trouble with depression and anxiety at this time - Past Surgical History Past Surgical History: Yes Neuro Surgical History: No Pertinent History Cardiac: No Pertinent History Respiratory: No Pertinent History Gastrointestinal: Appendectomy, Cholecystectomy Genitourinary: No Pertinent History Musculoskeletal: No Pertinent History Female Surgical History: Hysterectomy, Section, Tubal Ligation, Other Other Surgical History: barthland gland removed. uterine ablasion - Social History Smoking Status: Current every day smoker How long have you smoked: 16 years Exposure to second hand smoke: Yes Drug Use: none Patient Lives Alone: No - Female History Hx Last Menstrual Period: hysterectomy Hx Now: No - Nursing Vital Signs Nursing Vital Signs: Initial Vital Signs Temperature 99.0 F 01/26/18 14:03 Pulse Rate 100 H 01/26/18 14:03 Respiratory Rate 18 01/26/18 14:03 Blood Pressure 141/91 01/26/18 14:03 O2 Sat by Pulse Oximetry 98 01/26/18 14:03 Pain Scale Pain Intensity 6 - Physical Exam General Appearance: no apparent distress Eye Exam: PERRL/EOMI Ears, Nose, Throat Exam: moist mucous membranes, other (tender upper left molar and erythema, no fluc mass, no trismus) Neck Exam: normal inspection Respiratory Exam: No respiratory distress Extremity Exam: normal range of motion Neurologic Exam: alert, oriented x 3, cooperative Skin Exam: warm, dry SpO2: 98 Oxygen Delivery: Room Air - Course Nursing assessment & vital signs reviewed: Yes - CT Exams Maxillofacial Bones CT Interpretation: Discussed w/radiologist, Other (no abcess) Ordered Tests: Active Orders 24 hr Category Date Time Status IV Insertion STAT Care 01/26/18 14:28 Active NECK WITH CONTRAST [CT] Stat Exams 01/26/18 15:51 Completed BLOOD CULTURE Stat Lab 01/26/18 14:31 Ordered CBC W DIFF Stat Lab 01/26/18 Completed CMP Stat Lab 01/26/18 14:28 Completed HCG QUALITATIVE,SERUM Stat Lab 01/26/18 14:48 Completed Lactic Acid Stat Lab 01/26/18 14:45 Completed Medication Summary Discontinued Medications Generic Name Dose Route Start Last Admin Trade Name Freq PRN Reason Stop Dose Admin Sodium Chloride 1,000 mls @ 999 mls/hr 01/26/18 14:28 01/26/18 15:45 Sodium Chloride 0.9% 1000 Ml IV 01/26/18 15:28 Infused .Q1H1M STA Infusion Sodium Chloride Confirm 01/26/18 14:46 Sodium Chloride 0.9% 1000 Ml Administered 01/26/18 14:47 Dose 1,000 mls @ ud .ROUTE .[facility]-MED ONE Lab/Rad Data: Laboratory Result Diagrams 01/26/18 Unknown 01/26/18 14:28 Laboratory Results 01/26/18 01/26/18 01/26/18 Range/Units Unknown 14:48 14:45 WBC 15.1 H (4.0-10.5) K/mm3 RBC 4.27 (4.1-5.4) M/mm3 Hgb 13.3 (12.0-16.0) gm/dl Hct 40.3 (35-47) % MCV 94.4 (78-100) fl MCH 31.1 (26-32) pg MCHC 33.0 (32-36) g/dl RDW 13.8 (11.5-14.0) % Plt Count 353 (150-450) K/mm3 MPV 9.8 H (6-9.5) fl Gran % 82.6 H (36.0-66.0) % Eos # (Auto) 0.10 (0-0.5) Absolute Lymphs (auto) 1.73 (1.0-4.6) Absolute Monos (auto) 0.76 (0.0-1.3) Lymphocytes % 11.5 L (24.0-44.0) % Monocytes % 5.0 (0.0-12.0) % Eosinophils % 0.7 (0.00-5.0) % Basophils % 0.2 (0.0-0.4) % Absolute Granulocytes 12.47 H (1.4-6.9) Basophils # 0.03 (0-0.4) Sodium (137-145) mmol/L Potassium (3.5-5.1) mmol/L Chloride (98-107) mmol/L Carbon Dioxide (22-30) mmol/L Anion Gap (5-15) MEQ/L BUN (7-17) mg/dL Creatinine (0.52-1.04) mg/dL Estimated GFR ML/MIN Glucose (74-106) mg/dL Lactic Acid 1.8 (0.4-2.0) Calcium (8.4-10.2) mg/dL Total Bilirubin (0.2-1.3) mg/dL AST (14-36) U/L ALT (0-35) U/L Alkaline Phosphatase (38-126) U/L Serum Total Protein (6.3-8.2) g/dL Albumin (3.5-5.0) g/dL Serum , Qual NEGATIVE (Negative) 01/26/18 Range/Units 14:28 WBC (4.0-10.5) K/mm3 RBC (4.1-5.4) M/mm3 Hgb (12.0-16.0) gm/dl Hct (35-47) % MCV (78-100) fl MCH (26-32) pg MCHC (32-36) g/dl RDW (11.5-14.0) % Plt Count (150-450) K/mm3 MPV (6-9.5) fl Gran % (36.0-66.0) % Eos # (Auto) (0-0.5) Absolute Lymphs (auto) (1.0-4.6) Absolute Monos (auto) (0.0-1.3) Lymphocytes % (24.0-44.0) % Monocytes % (0.0-12.0) % Eosinophils % (0.00-5.0) % Basophils % (0.0-0.4) % Absolute Granulocytes (1.4-6.9) Basophils # (0-0.4) Sodium 141 (137-145) mmol/L Potassium 3.7 (3.5-5.1) mmol/L Chloride 105 (98-107) mmol/L Carbon Dioxide 24 (22-30) mmol/L Anion Gap 15.5 H (5-15) MEQ/L BUN 10 (7-17) mg/dL Creatinine 0.48 L (0.52-1.04) mg/dL Estimated GFR > 60.0 ML/MIN Glucose 144 H (74-106) mg/dL Lactic Acid (0.4-2.0) Calcium 9.6 (8.4-10.2) mg/dL Total Bilirubin 0.40 (0.2-1.3) mg/dL AST 19 (14-36) U/L ALT 20 (0-35) U/L Alkaline Phosphatase 85 (38-126) U/L Serum Total Protein 7.6 (6.3-8.2) g/dL Albumin 4.7 (3.5-5.0) g/dL Serum , Qual (Negative) - Progress Progress: unchanged Progress Note: 01/26/18 16:57 stop keflex, start augmentin, pt denies allergy to norco, see your doctor and dentist, return if worse Counseled pt/family regarding: lab results, diagnosis, need for follow-up, rad results - Departure Time of Disposition: 16:58 Departure Disposition: Home Clinical Impression: Cellulitis Qualifiers: Site of cellulitis: face Qualified Code(s): L03.211 - Cellulitis of face Condition: Stable Critical Care Time: No Referrals: DOCTOR,NO FAMILY [Primary Care Provider] - Instructions: Tooth Decay, Adult (DC) Additional Instructions: norco use warnings given, stop keflex, start augmentin, see your doctor and dentist, return if worse Prescriptions: Amoxicillin/Potassium Clav [Augmentin 875-125 Tablet] 875 mg PO BID #20 tablet Hydrocodone Bit/Acetaminophen [[place] 5-325 Tablet] 1 each PO Q4-6HPRN PRN #9 tablet MDD 4 PRN Reason: Pain
[2018-01-26] MEDS ORDERED: Sodium Chloride 0.9% 1000 ML 1,000 ML ONE (14:46)
[2018-01-26 14:51] LABS: BASOPHIL % 0.2 % (0.0-0.4); Basophil (Absolute #) 0.03 (0-0.4); Eosinophil % 0.7 % (0.00-5.0); Granulocyte Absolute (ANC) 12.47 (1.4-6.9); Granulocytes % 82.6 % (36.0-66.0); Hematocrit 40.3 % (35-47); Hemoglobin 13.3 gm/dl (12.0-16.0); Lymphocyte (Absolute #) 1.73 (1.0-4.6); Lymphocytes % 11.5 % (24.0-44.0); Mean Cell Volume 94.4 fl (78-100); Mean Corpuscular Hemoglobin 31.1 pg (26-32); Mean Platelet Volume 9.8 fl (6-9.5); Monocyte (Absolute #) 0.76 (0.0-1.3); Platelet Count 353 K/mm3 (150-450); Red Blood Count 4.27 M/mm3 (4.1-5.4); Red Cell Distribution Width 13.8 % (11.5-14.0); White Blood Count 15.1 K/mm3 (4.0-10.5)
[2018-01-26 15:04] LABS: ALBUMIN 4.7 g/dL (3.5-5.0); ALKALINE PHOSPHATASE 85 U/L (38-126); ANION GAP 15.5 MEQ/L (5-15); BLOOD UREA NITROGEN 10 mg/dL (7-17); CHLORIDE 105 mmol/L (98-107); Calcium 9.6 mg/dL (8.4-10.2); Carbon Dioxide 24 mmol/L (22-30); Creatinine 1 0.48 mg/dL (0.52-1.04); Glucose 144 mg/dL (74-106); Potassium 3.7 mmol/L (3.5-5.1); SGOT/AST 19 U/L (14-36); SGPT/ALT 20 U/L (0-35); SODIUM 141 mmol/L (137-145); Total Protein 7.6 g/dL (6.3-8.2)
[2018-01-26 16:04] VITALS: PULSE 79
--- NOTE | 2018-01-26 16:44 | XRAY ---
Indication: Right facial swelling. Multiple contiguous axial images obtained through the neck using 80 cc Isovue 370 contrast. Cutaneous marker placed over the region of interest. Comparison: None Cutaneous marker seen approximately right mid jaw level where there is underlying subcutaneous soft tissue swelling/induration favoring inflammatory/infectious process. Similar appearance seen of the subcutaneous tissues of the right face. No walled off fluid collection, subcutaneous emphysema, or radiopaque foreign body. Several centimeter/subcentimeter cervical and submandibular lymph nodes bilaterally presumed reactive. No pathologic cervical or supraclavicular lymphadenopathy. Parotid and submandibular glands are bilaterally symmetric. Major arteries and veins are normal in course and caliber. Thyroid gland enhances homogeneously. Supra and infraglottic airway widely patent. Normal epiglottis. There are multiple bilateral dental caries. Osseous structures including cervical spine intact without suspicious bony lesions. Mild mucosal thickening of the inferior right maxillary sinuses, right greater than left. Base of the brain and lung apices unremarkable. Impression: 1. Right face and right jaw cellulitis with small reactive lymph nodes. No walled off fluid collection/abscess. 2. Multiple bilateral dental caries. 3. Bilateral maxillary sinus disease. CTDI 13.24
[2018-01-26] MEDS ORDERED: Augmentin 875-125 Tablet PO ONE (16:56)
[2018-01-26] MEDS ORDERED: NORCO 5/325 MG PO ONE (16:57)
[2018-01-26] MEDS ORDERED: NORCO 5/325 MG ONE (17:00)
[2018-01-26] MEDS ORDERED: Augmentin 875-125 Tablet ONE (17:00)
[2018-01-26 17:05] VITALS: BP 135/88; O2SAT 99
== END 2018-01-26 17:19 | disposition home or self-care (01) ==
LOC: ED 13:56
DX: L03.211 Cellulitis of face (principal)
CPT/HCPCS: 36000; 36415; 70491; 80053; 81025; 83605; 85025; 87040; 96360; 96374; 99284; A9270-GY